=== PATIENT | female | born 1990 | race African-American/Black ===

== ENCOUNTER 2018-06-13 10:37 | Outpatient (CLI) | payer MEDICAID ==
--- NOTE | 2018-06-13 13:50 | ULT ---
PELVIC SONOGRAM TRANSABDOMINAL IMAGING: Date: 06/13/18 HISTORY: Irregular periods. FINDINGS: Urinary bladder is decompressed. Uterus has a heterogeneous echotexture and is 8.5 cm. Endometrium is 0.8 cm. No free fluid. Right ovary is 3.2 cm. Doppler flow is not well demonstrated. Left ovary not well visualized. No solid or cystic masses. IMPRESSION: No significant abnormalities are demonstrated. POS: [facility]
== END 2018-06-13 10:38 | disposition home or self-care (01) ==
LOC: SCSULT 10:37
PROVIDERS: ATTEND Nurse Practitioner
DX: N92.6 Irregular menstruation, unspecified (principal)
CPT/HCPCS: 76856